=== PATIENT | male | born 2005 | race Two or more races ===

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

== ENCOUNTER 2023-05-26 18:46 | Emergency (ER) | payer MEDICAID ==
[~2023-05-26] VITALS: Ht 177.8 cm; Wt 97.0 kg
[2023-05-26 18:58] VITALS: BP 133/90; PULSE 108; RESP 18; TEMP 97.1
[2023-05-26] MEDS ORDERED: CYCL-837 PO (21:54)
[2023-05-26] MEDS ORDERED: IBUP-1456 PO (21:54)
[2023-05-26] MEDS ORDERED: KETOROLAC TROMETH 60MG/2ML VIAL IM ONE (22:00)
[2023-05-26 22:11] VITALS: O2SAT 98
== END 2023-05-26 23:20 | disposition home or self-care (01) ==
LOC: ER 18:46
DX: S16.1XXA Strain of muscle, fascia and tendon at neck level, initial encounter (principal); S29.012A Strain of muscle and tendon of back wall of thorax, initial encounter; X58.XXXA Exposure to other specified factors, initial encounter; Y93.89 Activity, other specified; Y92.89 Other specified places as the place of occurrence of the external cause; Y99.8 Other external cause status
CPT/HCPCS: 72070; 72125; 96372; 99285; J1885